=== PATIENT | male | born 1965 | race Caucasian/White ===

== ENCOUNTER → 2021-03-29 12:06 | Outpatient (BNVA) | payer OTHER, SELFPAY | PROVIDERS: Visit Provider Physician Assistant Medical | DX: S97.01XA Crushing injury of right ankle, initial encounter (principal); V83.9XXA Unspecified occupant of special industrial vehicle injured in nontraffic accident, initial encounter | CPT/HCPCS: 73610; 73630; 99203 ==

== ENCOUNTER → 2021-04-01 09:35 | Outpatient (BNVA) | payer OTHER, SELFPAY | PROVIDERS: Visit Provider Physician Assistant | DX: S86.001A Unspecified injury of right Achilles tendon, initial encounter (principal); X58.XXXA Exposure to other specified factors, initial encounter | CPT/HCPCS: 99213 ==

== ENCOUNTER 2021-12-13 13:52 | Emergency (ER) | payer OTHER, SELFPAY ==
[2021-12-13 14:01] VITALS: BP 169/109; PULSE 66; RESP 18; TEMP 36.6; O2SAT 98; BMI 27.9
--- NOTE | 2021-12-13 14:19 | PC.NURSE ---
pt stated that he needed to leave in less than an hour or his daughters would be alone, i informed him that it would certainly take more than 1 hour to get immaging and be seen by a provider, pt decided to leave
== END 2021-12-13 14:50 | disposition left against medical advice (07) ==
PROVIDERS: Emergency Provider Emergency Medicine
DX: M54.2 Cervicalgia (principal)
CPT/HCPCS: 99281

== ENCOUNTER → 2021-12-28 11:40 | Outpatient (BNVA) | payer OTHER, SELFPAY | PROVIDERS: Visit Provider Physician Assistant | DX: T22.212A Burn of second degree of left forearm, initial encounter (principal); X17.XXXA Contact with hot engines, machinery and tools, initial encounter; Z23 Encounter for immunization | CPT/HCPCS: 90715; 99204 ==

== ENCOUNTER → 2021-12-30 11:30 | Outpatient (BNVA) | payer OTHER, SELFPAY | PROVIDERS: Visit Provider Internal Medicine | DX: T22.212A Burn of second degree of left forearm, initial encounter (principal); X17.XXXA Contact with hot engines, machinery and tools, initial encounter; L53.9 Erythematous condition, unspecified | CPT/HCPCS: 99213 ==